=== PATIENT | male | born 1955 | race Caucasian/White ===

== ENCOUNTER 2019-02-05 10:38 | Day surgery (SDC) | payer OTHER ==
[~2019-02-05 10:38] MED LIST: Acetaminophen TAB* 325 MG PO PRN
[2019-02-05] MEDS ORDERED: fentaNYL* 50 MCG/ML 2 ML VIAL (100 MCG VIAL) ONE (12:08)
[2019-02-05] MEDS ORDERED: Midazolam* 1 MG/ML 5 ML VIAL (5 MG) ONE (12:08)
[2019-02-05 13:13] VITALS: BP 115/65
[2019-02-05] MEDS ORDERED: Lidocaine 1% MPF ** 5 ML VIAL ONE (15:48)
[2019-02-05] MEDS ORDERED: Tetracaine 0.5% OPTH.SOL 4 ML* 1 DROP BTL ONE (15:48)
[2019-02-05] MEDS ORDERED: Neomycin/Polymy/Dex OPHTH.OIN* 3.5 GM ONE (15:48)
[2019-02-05] MEDS ORDERED: Ketorolac 0.5% OPHTH (NF) 0.5 % 5 ML BTL ONE (15:48)
[2019-02-05] MEDS ORDERED: Cyclopentolate 1% OPTH.SOL* 2 ML BTL ONE (15:48)
[2019-02-05] MEDS ORDERED: Phenylephrine OPHTH SOL 2.5%* 2 ML ONE (15:48)
[2019-02-05] MEDS ORDERED: Povidone Iodine 5% OPTH* 30 ML BTL ONE (15:48)
[2019-02-05] MEDS ORDERED: Tropicamide 1% OPTH.SOL* BTL ONE (15:48)
[2019-02-05] MEDS ORDERED: acetaZOLAMIDE TAB* 250 MG ONE (15:48)
--- NOTE | 2019-02-05 21:01 | OP ---
DATE OF OPERATION: 02/05/19 [facility] DATE OF : 53 SURGEON: Dayne Breaux MD. ANESTHESIA: Monitored anesthesia care. PRE-OP DIAGNOSIS: Cataract, left eye. POST-OP DIAGNOSIS: Cataract, left eye. OPERATIVE PROCEDURE: Extracapsular cataract extraction of the left eye with intraocular lens implant. IMPLANT: SN60WF 19.0 diopter lens to the left eye. COMPLICATIONS: None. DESCRIPTION OF PROCEDURE: The patient was given phenylephrine 2.5 % and cyclopentolate 1% eye drops to the operative eye in the preoperative area. The patient was taken to the operating room where a time-out was taken to identify the correct patient, site, and side of surgery. The patient's left eye was prepped and draped in the usual sterile fashion with 5% Betadine. A second time- out was taken to verify the correct patient, side, and site of surgery, as well as the correct lens implant. A lid speculum was placed to the left eye. A 1mm paracentesis blade was used to make a clear corneal incision. Preservative-free 1% lidocaine was injected into the anterior chamber. DisCoVisc was then injected into the anterior chamber. A 2.75 mm keratome blade was used to make a triplanar incision. A cystotome initiated a capsulorrhexis, which was completed with Utrata forceps in a continuous and curvilinear manner. Hydrodissection of the lens was performed with BSS on a cannula. The lens could be spun in a capsular bag. The phacoemulsification handpiece was used with a divide-and- conquer technique to remove the nucleus. The I/A handpiece then removed the residual cortical lens material. DisCoVisc was injected to inflate the capsular bag. The planned SN60WF 19.0 diopter lens was injected into the capsular bag. The residual DisCoVisc was removed from the eye with the I/A handpiece. The corneal incisions were hydrated and no leaks occurred at physiologic pressure around 20 mmHg per palpation. The lid speculum was removed and drapes were removed. Maxitrol ointment was placed to the surface of the operative eye. An adhesive patch and shield was then placed on the operative eye. The patient was taken to the postoperative area in stable condition. [id number]/[facility] #: [id number] [facility]
== END 2019-02-05 13:09 | disposition home or self-care (01) ==
LOC: OREAST 10:38
PROVIDERS: ATTEND Student in an Organized Health Care Education/Training Program
DX: H25.812 Combined forms of age-related cataract, left eye (principal); R73.03 Prediabetes; I25.10 Atherosclerotic heart disease of native coronary artery without angina pectoris; Z95.5 Presence of coronary angioplasty implant and graft; Z87.891 Personal history of nicotine dependence; K21.9 Gastro-esophageal reflux disease without esophagitis
CPT/HCPCS: A9270-GY; J2250; J3010; V2632

== ENCOUNTER 2023-01-03 18:21 | Inpatient (IN) ==
[2023-01-03 19:14] LABS: ABS Lymphocytes 0.4 10^3/uL (1.0-4.8); ABS Monocytes 0.3 10^3/uL (0.0-1.1); ABS Nucleated RBC 0.01 10^3/ul; Eosinophil % 0.2 %; Hematocrit 41.8 % (38-53); Hemoglobin 14.9 g/dL (13.2-16.3); Lymphocyte % 5.7 %; Mean Corpuscular Hemoglobin 31.8 pg (27-33); Mean Corpuscular Hgb Conc 35.6 g/dL (31-36); Mean Corpuscular Volume 89.2 fL (80-97); Mean Platelet Volume 8.2 fL (7.5-11.2); Nucleated Red Blood Cells % 0.1 /100 WBC (0.0-0.4); Platelet Count 146 10^3/uL (150-450); Red Blood Count 4.68 10^6/uL (4.06-5.63); Red Cell Distribution Width 13.2 % (12-17); White Blood Count 7.7 10^3/uL (3.6-10.2)
[2023-01-03 19:25] LABS: Activated Partial Thrombo Time 28.1 seconds (26.0-38.0); INR 1.29 (0.88-1.18)
[2023-01-03] MEDS ORDERED: Lactated Ringers 1000 ml BAG 1,000 ML IV ONE ×3 (19:26→21:04)
[2023-01-03 19:31] LABS: Albumin 3.1 g/dL (3.2-5.2); Albumin/Globulin Ratio 1.1 (1-3); C Reactive Protein 319.66 mg/L (<8.01); Calcium 8.3 mg/dL (8.6-10.3); Creatinine, Serum 1.25 mg/dL (0.67-1.17); Globulin 2.9 g/dL (2-4); Potassium 3.6 mmol/L (3.5-5.0); Total Bilirubin 1.4 mg/dL (0.2-1.0); eGFR CKD-EPI 62.7 (>60)
[2023-01-03] MEDS ORDERED: cefTRIAXone 2 GM ADDV.VIAL 2 GM in NS 0.9% 100 ml BAG 100 ML IV ONE (19:38)
[2023-01-03] MEDS ORDERED: Lactated Ringers SEPSIS* BAG 2,310 ML IV ONE (21:01)
[2023-01-03] MEDS ORDERED: Azithromycin 500 mg/250 ml NS 500 MG/250 ML BAG IVPB ONE (21:04)
[2023-01-03] MEDS ORDERED: cefTRIAXone 1 gm/50 mL D5W 1 GM/50 ML BAG IV ONE (21:05)
[2023-01-03] MEDS ORDERED: Cefepime 2 GM in Dextrose 2 GM/50 ML BAG IV SCH (22:00)
[2023-01-04] MEDS: Enoxaparin 40 MG/0.4 ML SYR SUBCUT SCH ×2 (00:21→20:40)
[2023-01-04 00:34] LABS: Urine Appearance Cloudy; Urine Bilirubin Negative (Negative); Urine Blood Negative (Negative); Urine Color Amber; Urine Glucose Negative (Negative); Urine Ketones Negative (Negative); Urine Nitrite Negative (Negative); Urine Protein 2+(100 mg/dL) (Negative); Urine Specific Gravity 1.021 (1.002-1.030); Urine Urobilinogen Positive (Negative)
[2023-01-04 00:36] LABS: Urine Bacteria Absent (Absent); Urine Red Blood Cell Trace(0-2/hpf) (Absent); Urine Squamous Epithelial Cell Present (Absent); Urine White Blood Cell Trace(0-5/hpf) (Absent)
[2023-01-04] MEDS ORDERED: CMCS: Alfuzosin ER 10 mg TAB.ER (NF) 10 MG TAB.ER PO SCH (09:00)
[2023-01-04 11:05] LABS: Creatinine, Serum 1.05 mg/dL (0.67-1.17); Potassium 3.5 mmol/L (3.5-5.0); eGFR CKD-EPI 77.3 (>60)
[2023-01-04 11:31] LABS: Hematocrit 39.5 % (38-53); Hemoglobin 14.2 g/dL (13.2-16.3); Mean Corpuscular Hemoglobin 31.8 pg (27-33); Mean Corpuscular Hgb Conc 35.8 g/dL (31-36); Mean Corpuscular Volume 88.8 fL (80-97); Mean Platelet Volume 9.1 fL (7.5-11.2); Platelet Count 142 10^3/uL (150-450); Red Blood Count 4.45 10^6/uL (4.06-5.63); Red Cell Distribution Width 13.5 % (12-17); White Blood Count 8.8 10^3/uL (3.6-10.2)
[2023-01-04] MEDS: Aspirin EC 81 mg TAB.EC (enteric coated) PO SCH (13:38)
[2023-01-04] MEDS ORDERED: NS 0.9% 1000 ml BAG 1,000 ML IV SCH (16:45)
[2023-01-04] MEDS: CMCS: Alfuzosin ER 10 mg TAB.ER (NF) 10 MG TAB.ER PO SCH (18:21)
[2023-01-04] MEDS: Azithromycin 500 mg/250 ml NS 500 MG/250 ML BAG IVPB SCH (20:40)
[2023-01-05 06:52] LABS: ABS Lymphocytes 0.9 10^3/uL (1.0-4.8); ABS Monocytes 0.5 10^3/uL (0.0-1.1); ABS Neutrophils 5.5 10^3/uL (1.5-7.6); ABS Nucleated RBC 0.01 10^3/ul; Eosinophil % 0.3 %; Hematocrit 36.3 % (38-53); Lymphocyte % 12.5 %; Mean Corpuscular Hgb Conc 35.8 g/dL (31-36); Mean Corpuscular Volume 89.4 fL (80-97); Mean Platelet Volume 8.5 fL (7.5-11.2); Nucleated Red Blood Cells % 0.1 /100 WBC (0.0-0.4); Platelet Count 176 10^3/uL (150-450); Red Blood Count 4.06 10^6/uL (4.06-5.63); Red Cell Distribution Width 13.5 % (12-17); White Blood Count 6.9 10^3/uL (3.6-10.2)
[2023-01-05 07:01] LABS: Calcium 7.6 mg/dL (8.6-10.3); Creatinine, Serum 1.02 mg/dL (0.67-1.17); Magnesium 2.1 mg/dL (1.9-2.7); Phosphorus 2.9 mg/dL (2.5-5.0); Potassium 3.3 mmol/L (3.5-5.0); eGFR CKD-EPI 80.1 (>60)
[2023-01-05] MEDS: Aspirin EC 81 mg TAB.EC (enteric coated) PO SCH (11:50)
[2023-01-05] MEDS: CMCS: Alfuzosin ER 10 mg TAB.ER (NF) 10 MG TAB.ER PO SCH (18:26)
[2023-01-05] MEDS: Enoxaparin 40 MG/0.4 ML SYR SUBCUT SCH (21:24)
[2023-01-05] MEDS: Azithromycin 500 mg/250 ml NS 500 MG/250 ML BAG IVPB SCH (21:24)
[2023-01-06 06:33] LABS: ABS Eosinophils 0.1 10^3/uL (0.0-0.5); ABS Lymphocytes 0.8 10^3/uL (1.0-4.8); ABS Monocytes 0.6 10^3/uL (0.0-1.1); ABS Neutrophils 4.3 10^3/uL (1.5-7.6); Hematocrit 36.9 % (38-53); Lymphocyte % 13.1 %; Mean Corpuscular Hemoglobin 31.9 pg (27-33); Mean Corpuscular Hgb Conc 35.1 g/dL (31-36); Mean Corpuscular Volume 90.9 fL (80-97); Mean Platelet Volume 8.2 fL (7.5-11.2); Platelet Count 208 10^3/uL (150-450); Red Blood Count 4.06 10^6/uL (4.06-5.63); Red Cell Distribution Width 13.5 % (12-17); White Blood Count 5.9 10^3/uL (3.6-10.2)
[2023-01-06 06:49] LABS: Calcium 7.5 mg/dL (8.6-10.3); Creatinine, Serum 0.95 mg/dL (0.67-1.17); Magnesium 2.1 mg/dL (1.9-2.7); Phosphorus 2.4 mg/dL (2.5-5.0); Potassium 3.7 mmol/L (3.5-5.0); eGFR CKD-EPI 87.2 (>60)
[2023-01-06] MEDS: Aspirin EC 81 mg TAB.EC (enteric coated) PO SCH (14:30)
[2023-01-06 16:10] VITALS: BP 129/62
[2023-01-07 09:41] LABS: Anaplasma phagocytophilum Negative (Negative); B. miyamotoi PCR, B Negative (Negative); Babesia divergens/MO-1 Negative (Negative); Babesia ducani Negative (Negative); Ehrlichia chaffeensis Negative (Negative); Ehrlichia ewingii/canis Negative (Negative); Ehrlichia muris eauclairensis Negative (Negative)
== END 2023-01-06 15:30 | disposition home or self-care (01) | DRG 871 ==
LOC: ED 18:21 → EDHOLD 22:08 → SUATTDRO 22:08 → MEDTELE 01-04 08:25
PROVIDERS: ADMIT Hospitalist; ATTEND Internal Medicine